=== PATIENT | male | born 1975 | race Hispanic/Latino ===

== ENCOUNTER 2019-09-27 15:22 | Emergency (ER) | payer SELFPAY ==
[~2019-09-27 15:22] MED LIST: EPINEPHrine 1 MG/10 ML SYR ONE; SODIUM CHL 0.9% 1000 ML BAG ONE
--- NOTE | 2019-09-27 15:35 | EDPHYS ---
Physician Documentation [facility] Name: Melinda Delgadillo Age: 44 yrs Sex: Male : 1975 Arrival Date: 09/27/2019 Time: 15:24 Bed 4 Private MD: ED Physician Eduardo Vasquez HPI: 09/27 15:35 This 44 yrs old Male presents to ER via EMS with complaints of CPR. jr8 15:35 Preceding the arrest, the patient collapsed, had chest pain, was found down by EMS. The jr8 arrest occurred at work. Pre-hospital course: The arrest was witnessed co-workers Bystanders at the scene did not perform CPR. EMS care prior to arrival: initiation of ACLS, peripheral IV, IO Left Tibia. intubation was successfully performed, orally, oxygen, by BVM to assist ventilations. 100% by ET tube. 5 minutes elapsed prior to ACLS. ACLS has been in progress for 35 minutes. ACLS details: Initial rhythm was PEA. The presenting rhythm is PEA. Airway: Ambu assist ventilation, oral intubation, Medications given by EMS prior to arrival - Epinephrine IV x 5 doses, Amiodarone 150 mg IV push given, Amiodarone 300 mg IV push given, Calcium chloride , Defibrillated X 4, Response to therapy: continued arrest. It is unknown whether or not the patient has had similar symptoms in the past. It is unknown whether or not the patient has recently seen a physician. 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 Had drove up to some other workers complaining of his chest and not feeling well. Had sat in his vehicle and passed out. EMS called at that time. EMS started CPR on arrival but bystandard CPR was not started . Historical: - Allergies: 15:31 No Known Allergies; sg - Home Meds: 15:31 Unable to obtain [Active]; sg - PSHx: 15:31 Unable to obtain; sg ROS: 15:35 Unable to obtain ROS due to CPR. jr8 Exam: 15:35 Eyes: Pupils fixed and dilated bilaterally ENT: Mucous membranes moist. ET tube and jr8 NG tube placed. No blood, vomitis, or other excretions noted Neck: Trachea midline Cardiovascular: Pulsless Respiratory: apneic. Ventilated via BVM at 12 bpm Abdomen/GI: Soft with mild distenstion. No noticable trauma Skin: Warm, dry with normal turgor. Normal color with no rashes, no lesions, and no evidence of cellulitis. Neuro: GCS 3. Unable to due neuro exam due to patients state Vital Signs: 15:20 Pulse 21 MON; Resp 20 A; Pulse Ox 100% on 15 lpm ETT ambu; sg 15:32 Pulse 0 MON; Resp 0; Pulse Ox 22% on 15 lpm ETT ambu; sg 15:33 Temp 98.0; sg 15:20 PEA sg Miriam Coma Score: 15:35 Eye Response: none(1). Verbal Response: none(1). Motor Response: none(1). Modifying jr8 Factors: Intubated. Total: 3. MDM: 15:33 Patient medically screened. jr8 15:45 Data reviewed: vital signs, nurses notes, lab test result(s). Data interpreted: Cardiac jr8 monitor: rate is 10 beats/min, rhythm is pulseless electrical activity. ED course: Despite EMS ACLS initiation with continuation of CPR and ACLS procedures here. Patient did not regain pulse or have any rhythm change. CPR was started and continued for approximately 50 min in total. 09/27 15:25 Order name: FSBG - FOR PT WITH NO ID 09/27 15:44 Order name: CBC with Diff; Complete Time: 16:41 8 09/27 15:44 Order name: PT-INR; Complete Time: 16:18 jr8 09/27 16:06 Order name: CBC Smear Scan; Complete Time: 16:41 EDND 09/27 16:09 Order name: Glucose, Ancillary(No Armband) EDND 09/27 15:44 Order name: IV Saline Lock; Complete Time: 16:10 jr8 09/27 15:44 Order name: Labs collected and sent; Complete Time: 16:11 jr8 Administered Medications: 15:22 Drug: EPINEPHrine 0.1mg/mL 1:10,000 1 mg Route: IVP; Site: right antecubital; sg 15:32 Follow up: Response: No adverse reaction sg 15:25 Drug: EPINEPHrine 0.1mg/mL 1:10,000 1 mg Route: IVP; Site: right antecubital; sg 15:32 Follow up: Response: No adverse reaction 15:25 Drug: Sodium Bicarbonate 1 amp Route: IVP; Site: right antecubital; sg 15:32 Follow up: Response: No adverse reaction sg 15:27 Drug: EPINEPHrine 0.1mg/mL 1:10,000 1 mg Route: IVP; Site: right antecubital; sg 15:32 Follow up: Response: No adverse reaction sg 15:30 Drug: EPINEPHrine 0.1mg/mL 1:10,000 1 mg Route: IVP; Site: right femoral; sg 15:32 Follow up: Response: No adverse reaction sg Point of Care Testing: Blood Glucose: 15:24 Blood Glucose: 228 mg/dL; sg Ranges: Critical Glucose Levels:Adult <50 mg/dl or >400 mg/dl <40 mg/dl or >180 mg/dl Disposition: Patient pronounced on 09/27/19 15:32 by Junior Hernandez. Impression: Cardiac arrest. - Released to Finishing Frame Runner. Addendum: 09/28/2019 21:05 Co-signature as Attending Physician, Eduardo Vasquez MD I agree with the assessment and k dr plan of care. Signatures: Dispatcher [employer] EDDeon Zapata RN RN sg Rittger, Kevin, MD MD [facility] Junior Hernandez, MARILEE HUNT jr8 Corrections: (The following items were deleted from the chart) 09/27 16:37 15:44 BASIC METABOLIC PANEL+C.LAB.BRZ ordered. EDMS EDMS 16:37 15:44 HEPATIC FUNCTION+C.LAB.BRZ ordered. EDMS EDMS 16:38 15:44 MAGNESIUM+C.LAB.BRZ ordered. EDMS EDMS 16:38 15:44 PROBNP+C.LAB.BRZ ordered. EDMS EDMS 16:38 15:44 TROPONIN (EMERG DEPT USE ONLY)+C.LAB.BRZ ordered. EDMS EDMS 18:38 15:34 09/27/2019 15:34 Patient pronounced on 09/27/2019 at 15:32 by uJnior Hernandez. sg Impression: Cardiac arrest. Released to Finishing Frame Runner. jr8
--- NOTE | 2019-09-27 15:35 | ER ---
Nurse's Notes [facility] Name: Melinda Delgadillo Age: 44 yrs Sex: Male : 1975 Arrival Date: 09/27/2019 Time: 15:24 Bed 4 Private MD: Diagnosis: Cardiac arrest Presentation: 09/27 15:20 Note pt arrival via EMS. 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 Care prior to arrival: Oral intubation, CPR via thumper performed by EMS and is still in progress IV initiated. in the left tib IO Glucose check: 81 Oxygen administered. via AMBU bag. Compressions began prior to arrival. 15:26 Method Of Arrival: EMS: [facility] sg 15:26 Acuity: SIMON 1 sg 15:26 Transition of care: patient was not received from another setting of care. Onset of sg symptoms was September 27, 2019. Care prior to arrival: Medication(s) given: Amiodarone 150 mg, Epi x5 police captain precinct, 1gm Calcium IO, NS 1 L. Activity prior to arrival: unresponsive. 15:26 Care prior to arrival: 7.5 ETT, 15 fr NG R Nare. sg 16:18 Care prior to arrival: I/O inserted to left tibia by [facility]. sg Historical: - Allergies: 15:31 No Known Allergies; sg - Home Meds: 15:31 Unable to obtain [Active]; sg - PSHx: 15:31 Unable to obtain; sg Assessment: 15:20 CPR assessment: unresponsive, no respiratory effort, intubated, Ambu ventilation, pale. sg Cardiac rhythm is PEA. 15:22 CPR assessment: unresponsive, no respiratory effort, intubated, Ambu ventilation, pale, sg pulses present w/ compressions. Cardiac rhythm is PEA. 15:24 CPR assessment: unresponsive, no respiratory effort, intubated, Ambu ventilation, pale. sg Cardiac rhythm is PEA. 15:27 CPR assessment: unresponsive, no respiratory effort, intubated, Ambu ventilation, pale. sg Cardiac rhythm is PEA. 15:29 CPR assessment: unresponsive, no respiratory effort, intubated, Ambu ventilation, pale. sg Cardiac rhythm is PEA. 15:30 CPR assessment: unresponsive, no respiratory effort, intubated, Ambu ventilation, pale. sg Cardiac rhythm is PEA. 15:32 CPR assessment: unresponsive, no respiratory effort, intubated, Ambu ventilation, pale. sg Cardiac rhythm is PEA. 15:55 Reassessment: [employer] contacted, Roselia Andrade, . sg 16:00 Reassessment: [facility] [employer] at bedside. sg 16:00 Reassessment: awaiting arrival of pt family at this time, [employer] coordinator to call sg back after [place]/CIVIL SERVICE WORKER and family arrival for information as dispo and the home of choice. 17:26 Reassessment: Judge Hernandez signed release of body to [facility] for transport sg to the Dimpling Machine Operator. 18:30 Reassessment: family at bedside with pt, pt to be released to [facility] for sg transport to [place]. Vital Signs: 15:20 Pulse 21 MON; Resp 20 A; Pulse Ox 100% on 15 lpm ETT ambu; sg 15:32 Pulse 0 MON; Resp 0; Pulse Ox 22% on 15 lpm ETT ambu; sg 15:33 Temp 98.0; sg 15:20 PEA sg [place] Coma Score: 15:35 Eye Response: none(1). Verbal Response: none(1). Motor Response: none(1). Modifying jr8 Factors: Intubated. Total: 3. ED Course: 15:22 Arm band placed on. sg 15:22 Patient has correct armband on for positive identification. substitute crossing guard on. Pulse sg ox on. NIBP on. 15:22 Inserted saline lock: 18 gauge in right antecubital area, using aseptic technique. sg Inserted saline lock: 20 gauge in left antecubital area, using aseptic technique. 15:22 IV inserted by Enriqueta RN, Miriam RN. sg 15:24 Patient arrived in ED. sg 15:29 Triage completed. sg 15:30 Assisted provider with central line placement. Triple lumen line placed in right sg femoral. Line placed by Eduardo Vasquez MD Blood was collected. Was procedure site sterilized? Yes, with chlorhexidine. Was the site allowed to dry? Yes. During the procedure, did the Practitioner(s) maintain a sterile field? Yes. Was a 2nd qualified MD obtained after 3 unsuccessful insertion attempts? No. Was blood aspirated from each lumen? Yes. After the procedure, did the Practitioner(s) clean the site and apply a sterile dressing? Yes. 15:32 intact, No redness/swelling at site. sg 15:33 Junior Hernandez PA is PHCP. jr8 15:33 Eduardo Vasquez MD is Attending Physician. jr8 15:33 Junior Hernandez PA is Pronouncing Provider. jr8 15:[address] [place] [address] to call the area development manager asset protection specialist. bd 15:41 Deon Kearney, RN is Primary Nurse. sg Administered Medications: 15:22 Drug: EPINEPHrine 0.1mg/mL 1:10,000 1 mg Route: IVP; Site: right antecubital; sg 15:32 Follow up: Response: No adverse reaction sg 15:25 Drug: EPINEPHrine 0.1mg/mL 1:10,000 1 mg Route: IVP; Site: right antecubital; sg 15:32 Follow up: Response: No adverse reaction sg 15:25 Drug: Sodium Bicarbonate 1 amp Route: IVP; Site: right antecubital; sg 15:32 Follow up: Response: No adverse reaction sg 15:27 Drug: EPINEPHrine 0.1mg/mL 1:10,000 1 mg Route: IVP; Site: right antecubital; sg 15:32 Follow up: Response: No adverse reaction sg 15:30 Drug: EPINEPHrine 0.1mg/mL 1:10,000 1 mg Route: IVP; Site: right femoral; sg 15:32 Follow up: Response: No adverse reaction sg Point of Care Testing: Blood Glucose: 15:24 Blood Glucose: 228 mg/dL; sg Ranges: Outcome: 15:32 Patient : Time of 15:32 Pronounced by Junior HUNT sg 15:32 Condition: 18:30 Patient : Body released to [place] sg 18:38 Patient left the ED. sg Signatures: Elly You Steven, MONTRELL RN Junior Hernandez PA PA jr8 Corrections: (The following items were deleted from the chart) 16:15 15:22 Note pt arrival via EMS sg sg
[2019-09-27] MEDS ORDERED: DIPHENHYDRAMINE 50 MG/ML VIAL ONE (15:41)
[2019-09-27 16:01] LABS: Absolute Lymphocytes (CBC) 2.6 K/uL (0.7-4.9); Basophils % 0.5 % (0-1.3); Hematocrit 39.1 % (39.6-49.0); Lymphocytes % 36.4 % (15.3-44.8); RBC Red Blood Cell Count 4.15 M/uL (4.33-5.43)
[2019-09-27 16:05] LABS: Protime INR 1.05
[2019-09-27 16:35] LABS: Platelet Estimate ADEQ; Urine White Blood Cell Casts OK
[2019-09-27 16:36] LABS: Blood Morphology Comment NOT SEEN (NOT SEEN)
[2019-09-27 21:32] VITALS: O2SAT 22
[2019-09-27 21:34] VITALS: TEMP 98
== END 2019-09-27 18:38 ==
LOC: ER 15:22
DX: I46.9 Cardiac arrest, cause unspecified (principal)
CPT/HCPCS: 36415; 82947; 85025; 85610; 92950; 99285; J0171; J1200; J7030